=== PATIENT | male | born 1950 | race Caucasian/White ===

== ENCOUNTER 2019-02-20 17:09 | Emergency (ER) | payer OTHER ==
[~2019-02-20] VITALS: Ht 182.9 cm; Wt 70.3 kg
[2019-02-20] MEDS ORDERED: NORVASC5 MG PO (17:16)
[2019-02-20] MEDS ORDERED: FORTAMET500 MG (17:16)
[2019-02-20] MEDS ORDERED: METOPROLOL PO (17:17)
[2019-02-20] MEDS ORDERED: ALZ SR CAPLET1 EACH PO (17:18)
[2019-02-20] MEDS ORDERED: LIPITOR20 MG PO (17:18)
== END 2019-02-20 21:14 | disposition home or self-care (01) ==
LOC: ER 17:09
DX: M25.561 Pain in right knee (principal); R26.2 Difficulty in walking, not elsewhere classified; R53.1 Weakness